=== PATIENT | female | born 1965 | race African-American/Black ===

== ENCOUNTER 2022-10-14 12:51 | Emergency (ER) | payer OTHER ==
[2022-10-14 13:15] VITALS: BP 147/84; PULSE 90; RESP 18; TEMP 97.6; BMI 29.2
[2022-10-14] MEDS ORDERED: NAPROXEN 500 MG TABLET PO ONE (14:08)
[2022-10-14] MEDS ORDERED: NAPROXEN 500 MG TABLET ONE (14:45)
[2022-10-14] MEDS ORDERED: ACETAMINOPHEN 325 MG TABLET (FP) PO ONE (14:55)
[2022-10-14] MEDS ORDERED: KETOROLAC TROMETHAMINE 30 MG/1 ML VIAL IM ONE (15:02)
[2022-10-14] MEDS ORDERED: KETOROLAC TROMETHAMINE 30 MG/1 ML VIAL ONE (15:04)
== END 2022-10-14 17:29 | disposition home or self-care (01) ==
LOC: JERFT 12:51
PROC: 3E0233Z Introduction of Anti-inflammatory into Muscle, Percutaneous Approach (ICD-10-PCS; principal; 2022-10-14)
DX: M25.511 Pain in right shoulder (principal); R20.2 Paresthesia of skin; W10.9XXA Fall (on) (from) unspecified stairs and steps, initial encounter
CPT/HCPCS: 72125-TC; 73030-TC-RT-FY; 73060-TC-RT-FY; 99285-25